=== PATIENT | female | born 1990 | race African-American/Black ===

== ENCOUNTER 2024-10-12 10:23 | Emergency (ER) | payer MEDICAID ==
[~2024-10-12] VITALS: Ht 165.1 cm; Wt 60.0 kg
[2024-10-12 10:28] VITALS: TEMP 37; O2SAT 100
[2024-10-12] MEDS ORDERED: D-ME473S50 PO (11:24)
[2024-10-12] MEDS ORDERED: NAPR-681 PO (11:24)
[2024-10-12] MEDS: ACETAMINOPHEN 325MG TABLET PO STA (11:29)
[2024-10-12] MEDS: ONDANSETRON 4MG ODT PO STA (11:29)
[2024-10-12 12:05] VITALS: BP 94/66; PULSE 68; RESP 12; O2SAT 100
[2024-10-12 12:15] LABS: INFLUENZA TYPE A Presumptive Negative (Pres. Neg.)
[2024-10-12 12:16] LABS: INFLUENZA TYPE B Presumptive Negative (Pres. Neg.)
== END 2024-10-12 12:12 | disposition home or self-care (01) ==
LOC: ER 10:23
DX: J06.9 Acute upper respiratory infection, unspecified (principal); B97.89 Other viral agents as the cause of diseases classified elsewhere; I10 Essential (primary) hypertension; Z20.822 Contact with and (suspected) exposure to COVID-19
CPT/HCPCS: 99283; 87426; 87804 ×2; Q0162